=== PATIENT | male | born 1960 | race Caucasian/White ===

== ENCOUNTER 2022-10-02 10:09 | Emergency (ER) | payer BC, SELFPAY ==
[2022-10-02 10:22] VITALS: BP 157/93; PULSE 74; RESP 16; TEMP 36.6; O2SAT 97
[2022-10-02 10:25] VITALS: BP 136/91; PULSE 74
[2022-10-02 10:28] VITALS: BP 140/99; PULSE 77
[2022-10-02 10:31] VITALS: BP 138/99; PULSE 88
--- NOTE | 2022-10-02 10:52 | ED.DIZZY ---
HPI - Dizziness General Chief Complaint: Dizziness Stated Complaint: Lightheaded when standing Time Seen by Provider: 10/02/22 10:29 Source: patient Mode of arrival: ambulatory Limitations: no limitations History of Present Illness HPI Narrative: Patient presents today complaining of lightheadedness upon standing x2 days. Symptoms start every time he stands lasts for approximately 2 minutes after standing before resolving. Upon further questioning, patient describes that the room feels that it is moving. He does not feel that he is going to lose consciousness. Denies chest pain, shortness of breath, nausea vomiting, weakness, numbness or tingling, vision changes, headache, palpitations or racing heartbeat. History of hypertension for which he takes olmesartan/HCTZ and amlodipine. Related Data Allergies Allergy/AdvReac Type Severity Reaction Status Date / Time azithromycin Allergy Gastrointestinal Verified 10/02/22 10:49 Upset ACEI Allergy Cough Uncoded 09/16/22 14:01 Review of Systems Review of Systems: CONSTITUTIONAL: Denies body aches, fever, chills, or sweats. EYES: Denies visual changes, redness, or discharge. ENT: Denies rhinorrhea, congestion, sore throat, or otalgia. CARDIOVASCULAR: Denies chest pain, palpitations, or edema. RESPIRATORY: Denies cough or dyspnea. GASTROINTESTINAL: Denies abdominal pain, nausea, vomiting, or diarrhea. GENITOURINARY: Denies dysuria or hematuria. SKIN: Denies rash, itching, or wounds. MUSCULOSKELETAL: Denies back pain, joint pain, or myalgia. NEUROLOGIC: Denies headache, numbness, tingling, or weakness.+ lightheadedness PSYCH: Denies depression or anxiety. [facility] Past Medical History Medical History Hypertension Rosacea Family History Family History Father Hypertension Cerebrovascular accident Diabetes mellitus Sibling Diabetes mellitus Mother Diabetes mellitus Social History Social History Smoking status: Never smoker Alcohol intake: current Alcohol use details: beer; occasionally Substance use: never Substance use type: does not use Living arrangements: with family Occupation/Education: occupation Additional occupation/education comments: [employer] Gender identity (if verbalized by the patient): Male Agree to blood products: Yes Comments At time of signature, I have reviewed and agree with nursing past medical, surgical, social and family history unless otherwise noted. Please see nursing chart for further information. There is no relevant family history pertinent to the presenting complaint Exam Narrative: GENERAL: Well-appearing, well-nourished, and in no acute distress. HEAD: Normocephalic, atraumatic. EYES: EOMI. PERRL. No redness or drainage. Conjunctivae normal. ENT: Mucous membranes pink and moist. Nares clear. No rhinorrhea. TMs normal bilaterally. NECK: Normal AROM. CHEST: No respiratory distress. Clear to auscultation. HEART: Regular rate and rhythm. No murmur appreciated. Normal peripheral pulses. ABDOMEN: Soft, nontender, nondistended, normal active bowel sounds. EXTREMITIES: Normal range of motion. No edema. Hand supervisor inspection department equal and strong. SKIN: Warm, dry, no rash. Capillary refill normal. Normal skin turgor. NEURO: No focal deficits. Alert and oriented x3. Gait steady. PSYCH: Normal affect. No signs of depression or anxiety. Course Course Emergency Course: Orthostatic blood pressures Supine: 136/91 pulse 74 Sittin/99 pulse 77 Standing 138/99 pulse 88 Level of Care: Express Care Visit Vital Signs Vital signs: Vital Signs Temperature 97.8 F 10/02/22 10:22 Pulse Rate 74 10/02/22 10:22 Respiratory Rate 16 10/02/22 10:22 Blood Pressure 157/93 H 10/02/22 10:22 Pulse Oximetry 97 10/02/22 10:22 Oxyg
[2022-10-02 10:55] VITALS: BP 135/94; PULSE 77; RESP 18; O2SAT 98
--- NOTE | 2022-10-02 11:09 | PC.NURSE ---
PT DENIED DIZZINESS THROUGHOUT ORTHOSTATIC VS. PT DENIES ANY ISSUES DURING CLINIC STAY. PT IS AGREEABLE TO TRANSFER TO [facility].
== END 2022-10-02 10:55 | disposition home or self-care (01) ==
PROVIDERS: Emergency Provider Nurse Practitioner; PCP Nurse Practitioner Family
DX: R42 Dizziness and giddiness (principal); I10 Essential (primary) hypertension
CPT/HCPCS: 99212; G0463

== ENCOUNTER 2022-10-02 11:10 | Emergency (ER) | payer BC, SELFPAY ==
[2022-10-02] VITALS (13 sets, daily range): BP systolic 124–154; BP diastolic 90–109; PULSE 65–82; RESP 14–20; TEMP 36.6; O2SAT 96–100
--- NOTE | ~2022-10-02 | CT_ITS ---
EXAMINATION: CT brain wo con DATE: 10/02/2022 13:54 INDICATION: Lightheadedness with standing. Headache. TECHNIQUE: Computed tomography (CT) of the head was performed without intravenous contrast. The mA wa s adjusted according to patient size. Iterative reconstruction technique was employed. The dose-lengt h product was 605.33 mGy-cm. COMPARISON: None FINDINGS: There is no intracranial hemorrhage, acute infarction, or abnormal intracranial mass lesion . The ventricles are normal in size. There is mild mucosal thickening in the paranasal sinuses. The o rbits are normal. The mastoid air cells are normal. IMPRESSION: 1. Normal brain. Reviewed, dictated and finalized at location A. NG ROOM COORDINATOR IMPRESSION: 1. Normal brain.
--- NOTE | 2022-10-02 11:54 | ECG_ITS ---
Measurements Intervals [place] Rate: 70 P: 24 KS: 215 QRS: 50 QRSD: 111 T: 20 QT: 413 QTc: 447 Interpretive Statements SINUS RHYTHM WITH FIRST DEGREE AV BLOCK INTRAVENTRICULAR CONDUCTION DELAY BORDERLINE ECG NO PREVIOUS ECG AVAILABLE FOR COMPARISON Electronically Signed On 10-02-2022 16:00:53 ARTIST COLOR SEPARATION by Salomon Red D.O.
[2022-10-02 12:15] LABS: Basophils Percent Auto 0.5 % (0.2-1.2); Eosinophils Absolute Auto 0.4 K/mm3 (0-0.3); Eosinophils Percent Auto 6.3 % (0-4.4); Hematocrit 45.5 % (42.0-52.0); Hemoglobin 14.9 g/dL (14.0-18.0); Immature Granulocyte Absolute 0.02 K/mm3 (0.00-0.031); Immature Granulocyte Percent A 0.3 % (0-0.5); Lymphocytes Absolute Auto 1.52 K/mm3 (0.9-3.2); Lymphocytes Percent Auto 24.5 % (18.3-44.2); Mean Corpuscular HGB Conc 32.7 g/dl (32-36); Mean Corpuscular Hemoglobin 29.4 pg (26-34); Mean Corpuscular Volume 89.7 fl (80-100); Mean Platelet Volume 9.1 fl (7.4-10.4); Monocytes Absolute Auto 0.5 K/mm3 (0.1-0.6); Monocytes Percent Auto 7.7 % (2.6-8.5); Neutrophils Absolute Auto 3.8 K/mm3 (1.3-6.7); Neutrophils Percent Auto 60.7 % (45.5-73.1); Platelet Count Result 286 k/mm3 (150-375); Red Blood Count 5.07 M/mm3 (4.6-6.20); Red Cell Distribution Width 13.8 % (11.5-14.5); White Blood Count 6.2 K/mm3 (4.5-10.0)
[2022-10-02 12:35] LABS: Alanine Aminotransferase 31 U/L (6-50); Albumin Level 4.7 g/dL (3.5-5.1); Alkaline Phosphatase 62 U/L (38-126); Anion Gap 5 mmol/L (8-16); Aspartate Amino Transferase 29 U/L (17-59); Bilirubin,Total 0.7 mg/dL (0.2-1.3); Blood Urea Nitrogen 17 mg/dL (9-20); Calcium 9.4 mg/dL (8.4-10.2); Carbon Dioxide 32 mmol/L (22-30); Chloride 99 mmol/L (98-107); Estimated CRCL calculation 120 ml/min; Estimated Glomerular Filt Rate > 60; Glucose 95 mg/dL (65-110); Potassium 3.7 mmol/L (3.4-5.0); Sodium 136 mmol/L (137-145)
--- NOTE | 2022-10-02 13:45 | ED.GENADULT ---
HPI - General Adult General Chief complaint: Recheck/Abnormal Lab/Rx Stated complaint: lighted headedness with standing Time Seen by Provider: 10/02/22 12:43 Source: patient Mode of arrival: ambulatory Limitations: no limitations History of Present Illness HPI narrative: Patient is a 62-year-old male who presents the ED from [facility] with reports of lightheadedness. Patient reports over the last 2 days he has had lightheadedness with standing upright. He states it feels like he is walking on water, like motion sickness. Denies room spinning sensation. He denies having lightheadedness any other time, only with standing. States lightheadedness will occur for a few seconds before resolving on its own. Patient was seen in urgent care today and referred to the ED for further evaluation. Patient denies any other symptoms, denies headache, vision changes, weakness, confusion, chest pain, difficulty breathing, ear pain or ringing, passing out, nausea, vomiting. Related Data Allergies Allergy/AdvReac Type Severity Reaction Status Date / Time azithromycin Allergy Gastrointestinal Verified 10/02/22 11:55 Upset ACEI Allergy Cough Uncoded 09/16/22 14:01 Review of Systems Review of Systems: CONSTITUTIONAL: Denies fever, chills, or sweats. EYES: Denies visual changes. ENT: See HPI. CARDIOVASCULAR: Denies chest pain, palpitations, or edema. RESPIRATORY: Denies cough or dyspnea. GASTROINTESTINAL: Denies abdominal pain, nausea, vomiting. MUSCULOSKELETAL: Denies back pain, joint pain, or myalgia. NEUROLOGIC: See HPI. All systems reviewed & are unremarkable except as noted in HPI and below PMFSH Past Medical History Medical History (Updated 10/02/22 @ 16:26 by Pia Kapoor PA-C) Hypertension Rosacea Surgical History Surgical History (Updated 10/02/22 @ 19:34 by Pia Kapoor PA-C) No pertinent past surgical history Family History Family History Father Hypertension Cerebrovascular accident Diabetes mellitus Sibling Diabetes mellitus Mother Diabetes mellitus Social History Social History Smoking status: Never smoker Alcohol intake: current Alcohol use details: beer; occasionally Substance use: never Substance use type: does not use Living arrangements: with family Occupation/Education: occupation Additional occupation/education comments: [employer] Uniform Gender identity (if verbalized by the patient): Male Agree to blood products: Yes Exam Narrative: GENERAL: Well appearing, well-nourished, non-toxic, in no acute distress. HEAD: Normocephalic, atraumatic. EYES: PERRL/EOMI, conjunctivae clear bilaterally. Mild fatiguable nystagmus when looking to left. NOSE: Normal, no drainage. EARS: TMS clear, with good light reflex. No erythema or bulging. Scattered cerumen, but no impaction. No signs of AOM/AOE. THROAT: Pharynx clear, no exudate. MMs moist. NECK: Supple. No adenopathy, no masses. RESPIRATORY: Airway patent, respirations nonlabored. Clear to auscultation bilaterally, no rales, rhonchi, wheezing. CARDIOVASCULAR: Regular rate and rhythm without murmurs, rubs, or gallops. Peripheral pulses 2+ and equal bilaterally. ABDOMINAL: Soft, nontender, nondistended, no hepatosplenomegaly. Normoactive BS. MUSCULOSKELETAL: Moves all extremities. Strength/ROM intact without gross deformities or TTP. No edema. No calf tenderness. SKIN: Warm, dry, normal color. No rashes. NEURO: A&O X3. Speech clear. Follows commands. CN II-XII intact. Sensation grossly intact. Steady gait. No ataxic movements. Strength 5/5 in upper and lower extremities bilaterally. No pronator drift. PSYCHIATRIC: Appropriate mood and affect. Normal interaction. Course Vital Signs Vital signs: Vital Signs Temperature 97.8 F 10/02/22 11:39 Pulse Rate 72 10/02/22 11:39 Respiratory Rate 1
[2022-10-02] MEDS: MECLIZINE HCL 25 MG TABLET PO (14:10)
[2022-10-02] MEDS: SODIUM CHLORIDE 0.9% IV 1,000 ML 999 ML IV CONT (14:11)
== END 2022-10-02 16:40 | disposition home or self-care (01) ==
PROVIDERS: Emergency Medicine; Emergency Provider Physician Assistant; PCP Nurse Practitioner Family
DX: I95.1 Orthostatic hypotension (principal); I10 Essential (primary) hypertension
CPT/HCPCS: 36415; 70450; 80053; 85025; 93005; 96360; 99284; A9270; J7030